=== PATIENT | male | born 1975 ===

== ENCOUNTER 2022-09-16 03:39 | Emergency (ER) | payer SELFPAY ==
[2022-09-16] MEDS ORDERED: Sodium Chloride 0.9% 1,000 ML IV ONE (03:43)
[2022-09-16] MEDS ORDERED: Ketamine 500 mg/10 ML MDV IV ONE ×2 (03:56→04:12)
[2022-09-16] MEDS ORDERED: Ketamine 500 mg/10 ML MDV ONE (03:58)
[2022-09-16 04:17] LABS: BLOOD UREA NITROGEN,BUN 15 mg/dL (7.0-18.0); CARBON DIOXIDE,CO2 18.9 mmol/L (21.0-32.0); CHLORIDE,CL 112 mmol/L (98-107); GLUCOSE RANDOM 107 mg/dL (74-106); LIPASE 764 U/L (73-393); POTASSIUM,K 4.2 mmol/L (3.5-5.1); SODIUM,NA 146 mmol/L (136-148)
[2022-09-16 04:22] LABS: ESTIMATED GFR 107 mL/min (>60)
== END 2022-09-16 10:38 | disposition home or self-care (01) ==
LOC: MW.ED 03:39
DX: F10.929 Alcohol use, unspecified with intoxication, unspecified (principal); S00.412A Abrasion of left ear, initial encounter; S00.411A Abrasion of right ear, initial encounter; S00.83XA Contusion of other part of head, initial encounter; Y09 Assault by unspecified means
CPT/HCPCS: 36415; 70450; 71045; 72125; 72170; 80053; 80305; 80307; 81001; 82550; 83690; 83735; 84484; 85025; 85610; 85730; 87635; 93005; 96361; 96374; 99284; J3490; J7030; U0002